=== PATIENT | male | born 1955 | race Caucasian/White ===

== ENCOUNTER → 2016-04-15 | Day surgery (SDC) | payer OTHER ==
--- NOTE | 2016-04-11 11:32 | History & Physical Pre-Op ---
General Information and HPI MD Statement: I have seen and personally examined MCKAYLA MENDES and documented this H&P. The patient is a 60 year old M who presented with a patient stated chief complaint of []. History of Present Illness: the patient is a healthy 60-year-old male who noted the acute onset of swelling in his left inguinal region a few months ago. He was working in his yard and trying to break and lift boulders. He did not get any significant pain from the activity noted a bulge later that evening on the shower. It does not give him any symptoms. There is no change to his bowel function no nausea vomiting. Allergies/Medications Allergies: Coded Allergies: No Known Allergies (04/11/16) Past History Surgical History Pertinent Surgical History: none Past Family/Social History Psychosocial History Smoking Status: Never Smoked ETOH Use: denies use Review of Systems Review of Systems: Patient reports back pain but reports no muscle aches, no muscle weakness, and no arthralgias/joint pain. He reports no fatigue, no fever, no night sweats, no significant weight gain, no significant weight loss, and no exercise intolerance. He reports no abnormal moles, no jaundice, no hives, no eczema, and no rashes. He reports no dry eyes, no irritation, no vision change, and no discharge. He reports no hearing loss, no ear pain, no sneezing, no frequent nosebleeds, no nose/sinus problems, no bleeding gums, no snoring, no dry mouth, no mouth ulcers, no oral abnormalities, no teeth problems, no headaches, and no sore throat. He reports no swollen glands and no neck stiffness. He reports no cough, no wheezing, no shortness of breath, and no coughing up blood. He reports no chest pain, no arm pain on exertion, no shortness of breath when walking, no shortness of breath when lying down, no palpitations, and no known heart murmur. He reports normal appetite, no abdominal pain, no vomiting, no vomiting blood, no bloating, no diarrhea, no belching, no constipation, no regurgitation, and no rectal bleeding. He reports no incontinence, no difficulty urinating, no hematuria, and no increased frequency. Exam & Diagnostic Data Physical Exam: Patient is a 60-year-old male. Constitutional: General Appearance: healthy-appearing, well-nourished, and well- developed. Level of Distress: no acute distress. Ambulation: ambulating normally. Head: Head: normocephalic and atraumatic. Neck: Neck: supple, trachea midline, no masses, and full range of motion. Lymph Nodes: no cervical LAD, supraclavicular LAD, axillary LAD, or inguinal LAD. Cardiovascular: Heart Auscultation: normal S1 and S2; no murmurs, rubs, or gallops; and regular rate and rhythm. Lungs: Respiratory effort: no dyspnea. Percussion: no dullness, flatness, or hyperresonance. Auscultation: no wheezing, rales/crackles, or rhonchi and breath sounds normal, good air movement, and clear to auscultation. Back: Thoracolumbar Appearance: normal curvature. Abdomen: Inspection and Palpation: no tenderness, guarding, masses, rebound tenderness, or CVA tenderness and soft and non-distended. Bowel Sounds: normal. Liver: non-tender and no hepatomegaly. Spleen: non-tender and no splenomegaly. Hernia: inguinal (spontaneously reducing left). Skin: Inspection and palpation: no rash, lesions, ulcer, induration, nodules, jaundice, or abnormal nevi and good turgor. Musculoskeletal:: Extremities: no cyanosis, edema, varicosities, or palpable cord. Motor Strength and Tone: normal tone and motor strength. Joints, Bones, and Muscles: no contractures, malalignment, tenderness, or bony abnormalities and normal movement of all extremities. Psychiatric: Insight: good judgement and insight. Mental Status: normal mood and affect and active and alert. Orientation: to time, place, and person. Memory: recent memory normal and remote memory normal. Assessment/Plan Assessment/Plan: Left inguinal hernia - Recommend laparoscopic repair. Wants to wait until December for upcoming business trip to [facility]. K40.30: Unilateral inguinal hernia, with obstruction, without gangrene, not specified as recurrent Discussion Discussion Notes Discussed laparoscopic preperitoneal hernia repair with mesh, the need for general anesthesia to perform it and the outpatient nature of surgery. Discussed the outcomes of surgery including 3-5% recurrence rate, 1% infection and bleeding risk. Discussed the permanent nature of mesh for repair and need for removal if infection occurs. Discussed the small risk of testicular vessel injury and vas deferens injury (males). Discussed emergent complications of oberved hernias including increasing pain, distention, nausea and vomiting. Discussed erythema of hernia site as well. Patient understands to call me urgently or go to ER should these findings develop. As Ranked By This Provider Problem List: 1. Unilateral inguinal hernia with obstruction and without gangrene
[~2016-04-15] VITALS: Ht 188 cm; Wt 79.4 kg
--- NOTE | 2016-04-15 14:16 | Operative Report ---
Operative/Inv Procedure Report Surgery Date: 04/15/16 Name of Procedure: Laparoscopic left inguinal hernia repair Pre-Operative Diagnosis: Left inguinal hernia Post-Operative Diagnosis: Same Estimated Blood Loss: scant Surgeon/Casing Fluid Tender: MIKE KWON,LORI Deluna/Nallely WOOD Anesthesia: general endotracheal tube Implants: Parietex mesh Operative/Procedure Note Note: After consent is brought to the operating room and laid supine. Gen. anesthesia was obtained and his abdomen was prepped and draped. Skin below the umbilicus after local anesthesia transverse incision made sharply. We dissected to the left-sided rectus abdominis and incised transversely. Stay sutures were placed in the muscle retracted laterally. A plane behind it was developed with a peanut through which the dissecting balloon was placed on the level of pubis. It was inflated under direct vision the camera then deflated and replaced with a blunt Valdes port. Gas was instilled. 2, 5 mm ports are placed infraumbilical midline, after local anesthesia was instilled and under direct vision the camera. Began or dissection at the pubis and delineated the symphysis. There was a large direct hernia which was reflected inferiorly. The cord structures and circumvention dissected and the iliopubic tract created. There is no indirect hernia. He left-sided piece of Parietex mesh was then marked for orientation rolled up and placed the cavity. It was unraveled in placed around the cord structures to cover the direct and indirect and femoral spaces. Once were happy the placement of mesh we let the gas to escape on maintaining proper orientation. The fascia was closed 0 Vicryl suture. Skin incisions closed with 4-0 Vicryl. Steri-Strips and sterile dressing applied sponge and needle counts are correct Findings: Direct CC: ADRIAN KWON,SHEILA Pinon
== END ==
LOC: STS 01:12
DX: K40.90 Unilateral inguinal hernia, without obstruction or gangrene, not specified as recurrent (principal)
CPT/HCPCS: C1781; J0131; J0690; J2250